=== PATIENT | female | born 1935 | race African-American/Black ===

== ENCOUNTER 2017-02-15 13:51 | Emergency (ER) | payer MEDICARE, MEDICAID ==
[~2017-02-15] VITALS: Ht 160 cm; Wt 77.0 kg
[~2017-02-15 13:51] MED LIST: AMIODARONE; AMLO10TA80 PO; ATEN-176 PO; B50 PO; DIAZ10TA4 PO; LOSA50TA20 PO; OCD PO; PANT40TA4 PO; PROAIR; SIMV10TA6 PO; SPIR25TA4 PO; SYSOS EACHEYE; XIIDRA BOTHEYE
[2017-02-15 14:22] VITALS: BP 141/65
[2017-02-15] MEDS ORDERED: ACETAMINOPHEN 325MG TABLET PO ONE (15:15)
== END 2017-02-15 16:12 | disposition home or self-care (01) ==
LOC: ER 15:04
DX: S46.911A Strain of unspecified muscle, fascia and tendon at shoulder and upper arm level, right arm, initial encounter (principal); I25.10 Atherosclerotic heart disease of native coronary artery without angina pectoris; K21.9 Gastro-esophageal reflux disease without esophagitis; I10 Essential (primary) hypertension; M19.90 Unspecified osteoarthritis, unspecified site; Z90.710 Acquired absence of both cervix and uterus; Z88.6 Allergy status to analgesic agent; Z91.041 Radiographic dye allergy status; Z98.890 Other specified postprocedural states; X50.0XXA Overexertion from strenuous movement or load, initial encounter; Y93.89 Activity, other specified; Y92.038 Other place in apartment as the place of occurrence of the external cause
CPT/HCPCS: 99283

== ENCOUNTER → 2017-05-03 | Outpatient (CLI) | payer MEDICARE, MEDICAID | END | disposition home or self-care (01) | LOC: RAD 12:50 | PROVIDERS: ATTEND Internal Medicine Gastroenterology | DX: R07.81 Pleurodynia (principal) | CPT/HCPCS: 71101 ==

== ENCOUNTER 2020-04-25 23:04 | Inpatient (IN) | payer MEDICARE, MEDICAID ==
[~2020-04-25] VITALS: Ht 157.5 cm; Wt 75.3 kg
[~2020-04-25 23:04] MED LIST changes: +AMIO100T4 PO; -AMIODARONE; -ATEN-176 PO; -B50 PO; +FOLI-43 MT; +FURO20TA4 PO; -LOSA50TA20 PO; -OCD PO; -PROAIR; +ROSU20TA2 PO; -SIMV10TA6 PO; -SPIR25TA4 PO; -SYSOS EACHEYE; -XIIDRA BOTHEYE
[2020-04-25] MEDS ORDERED: HYDROCODONE/ACETAMINOPHEN 5/325MG TABLET PO STA (23:35)
[2020-04-25] MEDS ORDERED: NITROGLYCERIN 0.4MG TABLET SL SL PRN (23:45)
[2020-04-25 23:51] LABS: BASOPHILS % 0.9 % (0.0-2.0); HEMATOCRIT. 34.9 % (36.0-48.0); HEMOGLOBIN. 11.7 g/dL (12.0-16.0); LYMPHOCYTES % 17.6 % (20.0-50.0); MEAN CORPUSCULAR HEMOGLOBIN 30.4 pg (28.0-32.0); MEAN CORPUSCULAR VOLUME 90.9 fL (81.0-99.0); MEAN PLATELET VOLUME 6.8 fl (7.4-10.4); MONOCYTES % 10.4 % (2.0-8.0); NEUTROPHILS % 68.1 % (40.0-76.0); PLATELET 274 x1000/uL (130-400); RED BLOOD CELL COUNT 3.84 mill/uL (4.2-5.4); RED CELL DISTRIBUTION WIDTH 17.2 % (11.6-14.6)
[2020-04-25 23:59] LABS: CHLORIDE 106 mEq/L (98-107)
[2020-04-26 00:02] LABS: PARTIAL THROMBOPLASTIN TIME 34.2 sec (23.4-31.0); PROTHROMBIN TIME 10.5 sec (9.6-11.0)
[2020-04-26] MEDS ORDERED: ACETAMINOPHEN 500MG TABLET PO ONE (00:45)
[2020-04-26] MEDS ORDERED: SODIUM CHLORIDE 0.9% 1,000 ML IV ONE (00:45)
[2020-04-26 09:00] VITALS: BP 138/66
[2020-04-26] MEDS ORDERED: CARV25TA47 MT (09:16)
[2020-04-26] MEDS ORDERED: DILT120C51 MT (09:16)
[2020-04-26] MEDS ORDERED: APIX5TAB MT (09:16)
[2020-04-26] MEDS ORDERED: OLME40TA18 MT (09:16)
[2020-04-26] MEDS ORDERED: ONDANSETRON HCL 4MG/2ML INJ IV PRN (10:15)
[2020-04-26] MEDS ORDERED: MAGNESIUM/ALUMINUM HYDROXIDE/SIMETHICONE 30ML UDC PO PRN ×2 (10:15→11:00)
[2020-04-26] MEDS ORDERED: LORAZEPAM 0.5MG TABLET PO PRN (10:15)
[2020-04-26] MEDS ORDERED: ACETAMINOPHEN 325MG TABLET PO PRN ×2 (10:15)
[2020-04-26] MEDS ORDERED: GUAIFENESIN 200MG/10ML SUGAR FREE UDC PO PRN (10:15)
[2020-04-26] MEDS ORDERED: DIPHENHYDRAMINE 50MG/ML VIAL IV PRN (10:15)
[2020-04-26] MEDS ORDERED: ZOLPIDEM TARTRATE 5MG TABLET PO PRN (10:15)
[2020-04-26] MEDS: PANTOPRAZOLE 40MG DR TABLET PO SCH ×3 (11:00→20:32)
[2020-04-26] MEDS ORDERED: HYDROCODONE/ACETAMINOPHEN 5/325MG TABLET PO PRN (11:00)
[2020-04-26] MEDS ORDERED: DIAZEPAM 5 MG TABLET PO PRN (11:00)
[2020-04-26] MEDS: LOSARTAN POTASSIUM 50 MG TABLET PO SCH ×2 (11:08→12:00)
[2020-04-26 12:00] VITALS: BP 137/62
[2020-04-26 16:00] VITALS: BP 142/62
[2020-04-26] MEDS: SODIUM CHLORIDE 0.9% INJ 3ML FLUSH IVF SCH ×2 (16:19→23:35)
[2020-04-26] MEDS: APIXABAN 2.5 MG TABLET PO SCH ×2 (16:57→17:00)
[2020-04-26] MEDS ORDERED: AMLO10TA80 MT (17:16)
[2020-04-26 20:00] VITALS: BP 140/65
[2020-04-26] MEDS ORDERED: ATORVASTATIN CALCIUM 20MG TABLET PO SCH (21:00)
[2020-04-26] MEDS: TRIAMCINOLONE ACETONIDE 0.1 % OINT 15GM TOP SCH (23:36)
[2020-04-27] VITALS: BP 142/70
[2020-04-27 04:00] VITALS: BP 131/65
[2020-04-27] MEDS: SODIUM CHLORIDE 0.9% INJ 3ML FLUSH IVF SCH ×2 (05:45→13:02)
[2020-04-27] MEDS: TRIAMCINOLONE ACETONIDE 0.1 % OINT 15GM TOP SCH ×2 (05:45→13:05)
[2020-04-27 08:00] VITALS: BP 159/66
[2020-04-27] MEDS: PANTOPRAZOLE 40MG DR TABLET PO SCH (08:15)
[2020-04-27] MEDS: APIXABAN 2.5 MG TABLET PO SCH (08:16)
[2020-04-27] MEDS: LOSARTAN POTASSIUM 50 MG TABLET PO SCH (08:16)
[2020-04-27] MEDS ORDERED: AMIODARONE HCL 200 MG TABLET PO SCH (09:00)
[2020-04-27 12:00] VITALS: BP 129/60
[2020-04-27 13:58] VITALS: BP 129/60
== END 2020-04-27 14:46 | disposition home or self-care (01) | DRG 391 ==
LOC: ER 23:04 → 5WST 04-26 00:37 → ENRESERV 04-26 07:43
PROVIDERS: ADMIT Internal Medicine; ATTEND Internal Medicine
DX: K21.9 Gastro-esophageal reflux disease without esophagitis (principal); N17.0 Acute kidney failure with tubular necrosis; I48.92 Unspecified atrial flutter; I24.9 Acute ischemic heart disease, unspecified; I48.0 Paroxysmal atrial fibrillation; I10 Essential (primary) hypertension; I25.10 Atherosclerotic heart disease of native coronary artery without angina pectoris; M19.90 Unspecified osteoarthritis, unspecified site; E78.00 Pure hypercholesterolemia, unspecified; I27.20 Pulmonary hypertension, unspecified; F41.9 Anxiety disorder, unspecified; Z88.8 Allergy status to other drugs, medicaments and biological substances; Z88.6 Allergy status to analgesic agent; Z91.041 Radiographic dye allergy status; Z79.84 Long term (current) use of oral hypoglycemic drugs; Z79.899 Other long term (current) drug therapy; Z90.710 Acquired absence of both cervix and uterus; Z82.49 Family history of ischemic heart disease and other diseases of the circulatory system; Z80.0 Family history of malignant neoplasm of digestive organs
CPT/HCPCS: 36415; 71045; 80048; 80053; 83880; 84484; 85025; 93005; 99285

== ENCOUNTER 2020-11-21 19:56 | Emergency (ER) | payer MEDICARE, MEDICAID ==
[~2020-11-21] VITALS: Ht 167.6 cm; Wt 72.0 kg
[~2020-11-21 19:56] MED LIST changes: +AMLO10TA80 MT; -AMLO10TA80 PO; +APIX5TAB MT; +CARV25TA47 MT; +DILT120C51 MT; +OLME40TA18 MT; -PANT40TA4 PO; +PANT40TA51 PO
[2020-11-21 22:30] VITALS: BP 145/72
[2020-11-21] MEDS ORDERED: POLY10DR RIGHTEYE (22:52)
== END 2020-11-21 23:31 | disposition home or self-care (01) ==
LOC: ER 19:56
DX: H11.31 Conjunctival hemorrhage, right eye (principal); I10 Essential (primary) hypertension; M19.90 Unspecified osteoarthritis, unspecified site; K21.9 Gastro-esophageal reflux disease without esophagitis; I48.91 Unspecified atrial fibrillation; I25.10 Atherosclerotic heart disease of native coronary artery without angina pectoris; Z90.710 Acquired absence of both cervix and uterus; Z79.01 Long term (current) use of anticoagulants; Z98.51 Tubal ligation status; Z88.6 Allergy status to analgesic agent; Z91.041 Radiographic dye allergy status; Z91.013 Allergy to seafood
CPT/HCPCS: 99283

== ENCOUNTER → 2021-01-07 | Outpatient (CLI) | payer MEDICARE, MEDICAID ==
[~2021-01-07] MED LIST changes: +POLY10DR RIGHTEYE
== END | disposition home or self-care (01) ==
LOC: NM 08:34
PROVIDERS: ATTEND Internal Medicine
DX: E05.90 Thyrotoxicosis, unspecified without thyrotoxic crisis or storm (principal)
CPT/HCPCS: 78014; A9516

== ENCOUNTER 2021-07-23 16:15 | Inpatient (IN) | payer MEDICARE, MEDICAID ==
[~2021-07-23] VITALS: Ht 157.5 cm; Wt 73.1 kg
[~2021-07-23 16:15] MED LIST changes: +HYDR25SU37 RC
[2021-07-23] MEDS ORDERED: FAMOTIDINE 20MG/2ML VIAL IV ONE (17:00)
[2021-07-23] MEDS ORDERED: EPINEPHRINE 1:1000 1 MG/ML AMP IM ONE (17:00)
[2021-07-23] MEDS ORDERED: DIPHENHYDRAMINE 50MG/ML VIAL IV ONE (17:00)
[2021-07-23] MEDS ORDERED: METHYLPREDNISOLONE SOD SUCC 125 MG/2 ML VIAL IV ONE (17:00)
[2021-07-23 17:55] LABS: CHLORIDE 106 mEq/L (98-107)
[2021-07-23 18:02] LABS: BASOPHILS % 0.5 % (0.0-2.0); EOSINOPHILS % 3.2 % (0.0-5.0); HEMATOCRIT. 35.6 % (36.0-48.0); HEMOGLOBIN. 11.5 g/dL (12.0-16.0); LYMPHOCYTES % 18.2 % (20.0-50.0); MEAN CORPUSCULAR HEMOGLOBIN 30.5 pg (28.0-32.0); MEAN CORPUSCULAR VOLUME 93.9 fL (81.0-99.0); MEAN PLATELET VOLUME 7.2 fl (7.4-10.4); MONOCYTES % 7.9 % (2.0-8.0); NEUTROPHILS % 70.2 % (40.0-76.0); PLATELET 276 x1000/uL (130-400); RED BLOOD CELL COUNT 3.79 mill/uL (4.2-5.4); RED CELL DISTRIBUTION WIDTH 15.4 % (11.6-14.6)
[2021-07-23 23:00] VITALS: BP 176/89
[2021-07-24] VITALS: BP 176/89
[2021-07-24] MEDS ORDERED: DIPHENHYDRAMINE 50MG/ML VIAL IV PRN (00:15)
[2021-07-24] MEDS ORDERED: HYDRALAZINE 20MG/ML VIAL IV PRN (00:15)
[2021-07-24] MEDS ORDERED: ACETAMINOPHEN 325MG TABLET PO PRN (00:15)
[2021-07-24] MEDS ORDERED: DIAZEPAM 5 MG TABLET PO PRN ×2 (00:15→11:00)
[2021-07-24] MEDS ORDERED: OXYCODONE HCL 5MG TABLET PO PRN (00:30)
[2021-07-24] MEDS ORDERED: NALOXONE HCL 0.4MG/ML VIAL IV PRN (01:00)
[2021-07-24 04:00] VITALS: BP 127/74
[2021-07-24 06:00] VITALS: BP 136/72
[2021-07-24] MEDS ORDERED: PANTOPRAZOLE 40MG DR TABLET PO SCH ×2 (07:30→21:00)
[2021-07-24 08:00] VITALS: BP 148/73
[2021-07-24] MEDS ORDERED: DILTIAZEM HCL 120MG CAPSULE CD 24HR PO SCH (09:00)
[2021-07-24] MEDS ORDERED: FUROSEMIDE 20MG TABLET PO SCH ×2 (09:00)
[2021-07-24] MEDS ORDERED: AMIODARONE HCL 200 MG TABLET PO SCH ×2 (09:00→11:00)
[2021-07-24] MEDS ORDERED: APIXABAN 5 MG TABLET PO SCH ×2 (09:00→17:00)
[2021-07-24 12:00] VITALS: BP 169/81
[2021-07-24] MEDS ORDERED: HYDRALAZINE HCL 25MG TABLET PO SCH (14:00)
[2021-07-24 15:15] VITALS: BP 167/90
[2021-07-24] MEDS ORDERED: ATORVASTATIN CALCIUM 10MG TABLET PO SCH ×2 (21:00)
[2021-07-24] MEDS ORDERED: CARVEDILOL 12.5MG TABLET PO SCH (21:00)
== END 2021-07-24 15:50 | disposition home or self-care (01) | DRG 916 ==
LOC: ER 16:15 → 5EST 19:26 → ENRESERV 20:34
PROVIDERS: ADMIT Internal Medicine; ATTEND Internal Medicine
DX: T78.3XXA Angioneurotic edema, initial encounter (principal); I48.92 Unspecified atrial flutter; I48.91 Unspecified atrial fibrillation; I10 Essential (primary) hypertension; E78.00 Pure hypercholesterolemia, unspecified; I27.20 Pulmonary hypertension, unspecified; K21.9 Gastro-esophageal reflux disease without esophagitis; F41.9 Anxiety disorder, unspecified; Z79.01 Long term (current) use of anticoagulants; Z88.8 Allergy status to other drugs, medicaments and biological substances; Z88.6 Allergy status to analgesic agent; Z91.041 Radiographic dye allergy status; Z79.899 Other long term (current) drug therapy; Z79.84 Long term (current) use of oral hypoglycemic drugs; Z90.710 Acquired absence of both cervix and uterus; Z82.49 Family history of ischemic heart disease and other diseases of the circulatory system; Z80.0 Family history of malignant neoplasm of digestive organs
CPT/HCPCS: 36415; 80053; 85025; 99291; J0360; J1200; J2930; J3490

== ENCOUNTER → 2022-02-23 | Outpatient (CLI) | payer MEDICARE, MEDICAID ==
[2022-02-23 13:03] LABS: BASOPHILS % 0.3 % (0.0-2.0); EOSINOPHILS % 2.8 % (0.0-5.0); HEMOGLOBIN. 13.6 g/dL (12.0-16.0); LYMPHOCYTES % 17.2 % (20.0-50.0); MEAN CORPUSCULAR HEMOGLOBIN 31.9 pg (28.0-32.0); MEAN CORPUSCULAR VOLUME 96.1 fL (81.0-99.0); MEAN PLATELET VOLUME 7.4 fl (7.4-10.4); MONOCYTES % 7.8 % (2.0-8.0); NEUTROPHILS % 71.9 % (40.0-76.0); PLATELET 259 x1000/uL (130-400); RED BLOOD CELL COUNT 4.26 mill/uL (4.2-5.4); RED CELL DISTRIBUTION WIDTH 14.7 % (11.6-14.6)
[2022-02-23 13:06] LABS: CHLORIDE 105 mEq/L (98-107)
[2022-02-23 13:08] LABS: PROTHROMBIN TIME 11.1 sec (9.6-11.0)
[2022-02-23 13:22] LABS: HDL CHOLESTEROL 58 mg/dL (40-59); LDL CHOLESTEROL 82 mg/dL (5-100); T4 FREE 1.14 ng/dL (0.76-1.46)
== END | disposition home or self-care (01) ==
LOC: LAB 11:55
PROVIDERS: ATTEND Specialist
DX: I10 Essential (primary) hypertension (principal); E78.5 Hyperlipidemia, unspecified; I48.0 Paroxysmal atrial fibrillation
CPT/HCPCS: 36415; 80053; 80061; 84439; 84443; 85025

== ENCOUNTER → 2022-07-06 | Outpatient (CLI) | payer MEDICARE, MEDICAID ==
[2022-07-06 11:40] LABS: CHLORIDE 108 mEq/L (98-107)
[2022-07-06 11:49] LABS: HDL CHOLESTEROL 63 mg/dL (40-59); LDL CHOLESTEROL 68 mg/dL (5-100)
== END | disposition home or self-care (01) ==
LOC: LAB 10:48
PROVIDERS: ATTEND Specialist
DX: I10 Essential (primary) hypertension (principal); E78.5 Hyperlipidemia, unspecified; E11.9 Type 2 diabetes mellitus without complications
CPT/HCPCS: 36415; 80053; 80061; 83036

== ENCOUNTER 2023-04-12 11:59 | Inpatient (IN) | payer OTHER, MEDICAID ==
[~2023-04-12] VITALS: Ht 157.5 cm; Wt 63.5 kg
[2023-04-12 12:15] VITALS: O2SAT 98
[2023-04-12 12:40] LABS: BASOPHILS % 0.4 % (0.0-2.0); EOSINOPHILS % 0.8 % (0.0-5.0); HEMOGLOBIN. 10.5 g/dL (12.0-16.0); LYMPHOCYTES % 16.1 % (20.0-50.0); MEAN CORPUSCULAR HGB CONC 32.7 g/dL (31.0-37.0); MEAN CORPUSCULAR VOLUME 97.8 fL (81.0-99.0); MEAN PLATELET VOLUME 6.8 fl (7.4-10.4); MONOCYTES % 6.4 % (2.0-8.0); NEUTROPHILS % 76.3 % (40.0-76.0); PLATELET 368 x1000/uL (130-400); RED BLOOD CELL COUNT 3.27 mill/uL (4.2-5.4); RED CELL DISTRIBUTION WIDTH 14.9 % (11.6-14.6)
[2023-04-12 12:54] LABS: INR 1.1; PARTIAL THROMBOPLASTIN TIME 32.7 sec (23.4-31.0); PROTHROMBIN TIME 11.8 sec (9.6-11.0)
[2023-04-12 13:01] LABS: CHLORIDE 107 mEq/L (98-107); INDEX HEMOLYSI 1 (1-3); INDEX ICTERIC 1 (1-4); INDEX LIPEMIC 1 (1-3); POTASSIUM 4.4 mEq/L (3.5-5.1); SODIUM 138 mEq/L (136-145)
[2023-04-12 13:09] LABS: ALANINE AMINOTRANSFERASE 125 IU/L (13-61); ALBUMIN 3.2 g/dL (3.4-5.0); ASPARTATE AMINOTRANSFERASE 132 IU/L (15-37); BILIRUBIN TOTAL 0.6 mg/dL (0.1-1.0); CALCIUM 9.1 mg/dL (8.5-10.1); CARBON DIOXIDE 32 mEq/L (21-32); CREATININE 1.4 mg/dL (0.6-1.3); GLUCOSE 104 mg/dL (70-105); PROTEIN TOTAL 7.4 g/dL (6.0-8.3); UREA NITROGEN BLOOD 26 mg/dL (7-21)
[2023-04-12 16:16] LABS: CLARITY URINE CLEAR (CLEAR); COLOR URINE YELLOW (YELLOW); GLUCOSE URINE NEGATIVE (NEGATIVE); KETONES URINE NEGATIVE (NEGATIVE); LEUKOCYTE ESTERASE URINE NEGATIVE (NEGATIVE); NITRITE URINE NEGATIVE (NEGATIVE); OCCULT BLOOD URINE TRACE (NEGATIVE); PROTEIN URINE NEGATIVE (NEGATIVE); SPECIFIC GRAVITY URINE 1.014 (1.005-1.030); UROBILINOGEN URINE 0.2 E.U./dL (0.2-1.0)
[2023-04-12 16:43] LABS: BACTERIA URINE TRACE; RBC URINE 0-2 /hpf (0-2); SQUAMOUS EPITHELIAL CELL URINE RARE /lpf (RARE/1+); WBC URINE 0-2 /hpf (0-2)
[2023-04-12] MEDS ORDERED: ONDANSETRON HCL 4MG/2ML INJ IV PRN (19:45)
[2023-04-12] MEDS ORDERED: ACETAMINOPHEN 325MG TABLET PO PRN (19:45)
[2023-04-12] MEDS ORDERED: DIAZEPAM 5 MG TABLET PO PRN (19:45)
[2023-04-12] MEDS ORDERED: DIPHENHYDRAMINE 50MG/ML VIAL IV PRN (19:45)
[2023-04-12] MEDS ORDERED: OXYCODONE HCL 5MG TABLET PO PRN (20:00)
[2023-04-12] MEDS ORDERED: NALOXONE HCL 0.4MG/ML VIAL IV PRN (20:15)
[2023-04-12] MEDS ORDERED: BRIMONIDINE 0.2% OPHTH DROPS 10ML BOTHEYE SCH (21:00)
[2023-04-12] MEDS ORDERED: ATORVASTATIN CALCIUM 20MG TABLET PO SCH (21:00)
[2023-04-12] MEDS ORDERED: ZOLPIDEM TARTRATE 5MG TABLET PO PRN (21:00)
[2023-04-12] MEDS: METOPROLOL TARTRATE 25MG TABLET PO SCH (22:37)
[2023-04-12] MEDS: TIMOLOL MALEATE 0.5% OPHTH DROPS 5ML EACHEYE SCH (22:58)
[2023-04-12] MEDS: BRIMONIDINE 0.2% OPHTH DROPS 5ML BOTHEYE SCH (22:58)
[2023-04-12] MEDS: SODIUM CHLORIDE 0.9% INJ 3ML FLUSH IVF SCH (22:58)
[2023-04-12] MEDS: PANTOPRAZOLE 40MG DR TABLET PO SCH (22:58)
[2023-04-13 00:01] VITALS: BP 139/56; PULSE 65; RESP 12; TEMP 96.3
[2023-04-13] MEDS ORDERED: TIMO5DRO32 EACHEYE (00:22)
[2023-04-13] MEDS ORDERED: CYCL5.5D EACHEYE (00:22)
[2023-04-13] MEDS ORDERED: BRIM15DR8 EACHEYE (00:22)
[2023-04-13] MEDS ORDERED: LATA2.5D14 EACHEYE (00:22)
[2023-04-13 04:00] VITALS: BP 130/55; PULSE 54; RESP 19; TEMP 97.3
[2023-04-13] MEDS ORDERED: AMLO5TAB88 PO (05:07)
[2023-04-13] MEDS ORDERED: GINS100C5 PO (05:07)
[2023-04-13] MEDS ORDERED: POTA-202 PO (05:07)
[2023-04-13] MEDS ORDERED: DOCU100T PO (05:07)
[2023-04-13] MEDS ORDERED: COLC0.6C3 PO (05:07)
[2023-04-13] MEDS ORDERED: FERR325T30 PO (05:07)
[2023-04-13] MEDS ORDERED: ICOS1CAP MT (05:07)
[2023-04-13] MEDS ORDERED: BRIM10DR2 EACHEYE (05:07)
[2023-04-13] MEDS ORDERED: DILT-27 PO (05:07)
[2023-04-13] MEDS ORDERED: METO-396 PO (05:07)
[2023-04-13] MEDS ORDERED: TELM80TA8 PO (05:07)
[2023-04-13] MEDS ORDERED: CLOT15CR5 TP (05:23)
[2023-04-13] MEDS ORDERED: *PATIENT'S OWN MEDICATION STORAGE XX SCH (05:45)
[2023-04-13 06:23] LABS: BASOPHILS % 0.4 % (0.0-2.0); EOSINOPHILS % 1.2 % (0.0-5.0); HEMATOCRIT. 29.2 % (36.0-48.0); HEMOGLOBIN. 9.7 g/dL (12.0-16.0); LYMPHOCYTES % 14.3 % (20.0-50.0); MEAN CORPUSCULAR HEMOGLOBIN 32.8 pg (28.0-32.0); MEAN CORPUSCULAR HGB CONC 33.3 g/dL (31.0-37.0); MEAN CORPUSCULAR VOLUME 98.4 fL (81.0-99.0); MEAN PLATELET VOLUME 7.2 fl (7.4-10.4); MONOCYTES % 7.1 % (2.0-8.0); PLATELET 309 x1000/uL (130-400); RED BLOOD CELL COUNT 2.96 mill/uL (4.2-5.4); RED CELL DISTRIBUTION WIDTH 15.2 % (11.6-14.6); WHITE BLOOD COUNT 11.4 x1000/uL (4.5-11.0)
[2023-04-13] MEDS: SODIUM CHLORIDE 0.9% INJ 3ML FLUSH IVF SCH ×3 (06:54→22:00)
[2023-04-13] MEDS: PANTOPRAZOLE 40MG DR TABLET PO SCH ×2 (06:55→21:48)
[2023-04-13 07:06] LABS: ALBUMIN 2.7 g/dL (3.4-5.0); BILIRUBIN DIRECT 0.1 mg/dL (0.0-0.2); BILIRUBIN TOTAL 0.4 mg/dL (0.1-1.0); CALCIUM 8.6 mg/dL (8.5-10.1); CREATININE 1.2 mg/dL (0.6-1.3); PROTEIN TOTAL 6.3 g/dL (6.0-8.3)
[2023-04-13 07:57] LABS: INR 1.1; PROTHROMBIN TIME 11.8 sec (9.6-11.0)
[2023-04-13 08:00] VITALS: BP 123/86; PULSE 62; RESP 18; TEMP 98
[2023-04-13 08:28] LABS: INDEX HEMOLYSI 1 (1-3)
[2023-04-13 08:59] LABS: FOLIC ACID (FOLATE) SERUM >20 ng/mL ng/mL (>5.38); VITAMIN B12 SERUM 1727 pg/mL (211-911)
[2023-04-13] MEDS: TIMOLOL MALEATE 0.5% OPHTH DROPS 5ML EACHEYE SCH ×2 (09:00→21:50)
[2023-04-13] MEDS: AMLODIPINE 5MG TABLET PO SCH (09:00)
[2023-04-13] MEDS: AMIODARONE HCL 200 MG TABLET PO SCH (09:00)
[2023-04-13] MEDS: METOPROLOL TARTRATE 25MG TABLET PO SCH ×2 (09:00→21:49)
[2023-04-13] MEDS: BRIMONIDINE 0.2% OPHTH DROPS 5ML BOTHEYE SCH (10:23)
[2023-04-13 12:00] VITALS: BP 133/48; PULSE 68; RESP 18; TEMP 96.8
[2023-04-13] MEDS: IRON SUCROSE COMPLEX 100 MG/5 ML ML IV SCH (15:04)
[2023-04-13 16:00] VITALS: BP 154/62; PULSE 66; RESP 19; TEMP 97.5
[2023-04-13 18:28] LABS: HEPATITIS B SURFACE ANTIGEN NEGATIVE
[2023-04-13 18:55] LABS: HEPATITIS C VIR.AB 0.25 INDEXVAL (0.00-0.80)
[2023-04-13 20:00] VITALS: BP 158/68; PULSE 69; RESP 20; TEMP 98.1
[2023-04-13] MEDS ORDERED: NON FORMULARY PATIENT HOME MED XX SCH (21:30)
[2023-04-13] MEDS: SODIUM CHLORIDE 0.9% 1,000 ML IV SCH (21:49)
[2023-04-13] MEDS: ATORVASTATIN CALCIUM 10MG TABLET PO SCH (21:49)
[2023-04-13] MEDS: ACETAMINOPHEN 325MG TABLET PO PRN (21:55)
[2023-04-13 22:32] LABS: NT PRO B-TYPE NATRIURETIC PEP 815 pg/mL (5-125); TROPONIN I HIGH SENSITIVITY 14 ng/L (<54)
[2023-04-13 23:18] LABS: CARCINO EMBRYONIC ANTIGEN 3.4 ng/ml
[2023-04-14] VITALS: BP 104/59; PULSE 65; RESP 19; TEMP 98.7
[2023-04-14] MEDS: LATANOPROST 0.005% OPHTH DROPS 2.5ML EACHEYE SCH ×2 (00:32→20:35)
[2023-04-14] MEDS: BRIMONIDINE 0.2% OPHTH DROPS 5ML BOTHEYE SCH ×3 (00:32→20:35)
[2023-04-14 04:00] VITALS: BP 159/65; PULSE 60; RESP 18; TEMP 98.3
[2023-04-14] MEDS: SODIUM CHLORIDE 0.9% INJ 3ML FLUSH IVF SCH ×3 (05:48→20:35)
[2023-04-14] MEDS: PANTOPRAZOLE 40MG DR TABLET PO SCH ×2 (07:06→20:28)
[2023-04-14 08:00] VITALS: BP 145/70; PULSE 67; RESP 18; TEMP 97.7
[2023-04-14 08:23] LABS: BASOPHILS % 0.1 % (0.0-2.0); EOSINOPHILS % 0.4 % (0.0-5.0); HEMATOCRIT. 29.1 % (36.0-48.0); HEMOGLOBIN. 9.5 g/dL (12.0-16.0); LYMPHOCYTES % 13.3 % (20.0-50.0); MEAN CORPUSCULAR HEMOGLOBIN 32.1 pg (28.0-32.0); MEAN CORPUSCULAR HGB CONC 32.7 g/dL (31.0-37.0); MEAN PLATELET VOLUME 7.3 fl (7.4-10.4); MONOCYTES % 7.5 % (2.0-8.0); NEUTROPHILS % 78.7 % (40.0-76.0); PLATELET 280 x1000/uL (130-400); RED BLOOD CELL COUNT 2.97 mill/uL (4.2-5.4); RED CELL DISTRIBUTION WIDTH 15.1 % (11.6-14.6)
[2023-04-14 09:01] LABS: CHLORIDE 107 mEq/L (98-107); INDEX HEMOLYSI 1 (1-3); INDEX ICTERIC 1 (1-4); INDEX LIPEMIC 1 (1-3); POTASSIUM 3.6 mEq/L (3.5-5.1); SODIUM 140 mEq/L (136-145); UREA NITROGEN BLOOD 14 mg/dL (7-21)
[2023-04-14 09:11] LABS: CALCIUM 8.3 mg/dL (8.5-10.1); CARBON DIOXIDE 26 mEq/L (21-32); CREATININE 0.9 mg/dL (0.6-1.3); GLUCOSE 96 mg/dL (70-105)
[2023-04-14] MEDS: METOPROLOL TARTRATE 25MG TABLET PO SCH ×2 (09:22→20:28)
[2023-04-14] MEDS: AMLODIPINE 5MG TABLET PO SCH (09:22)
[2023-04-14] MEDS: AMIODARONE HCL 200 MG TABLET PO SCH (09:22)
[2023-04-14] MEDS: TIMOLOL MALEATE 0.5% OPHTH DROPS 5ML EACHEYE SCH ×2 (09:23→20:35)
[2023-04-14] MEDS: SODIUM CHLORIDE 0.9% 1,000 ML IV SCH (09:23)
[2023-04-14] MEDS ORDERED: LIDOCAINE HCL 1% 10 MG/ML 10ML VIAL ONE (10:42)
[2023-04-14 12:00] VITALS: BP 137/67; PULSE 78; RESP 18; TEMP 98.2
[2023-04-14 13:11] LABS: ALPHA FETOPROTEIN TUMOR MARKER < 1.8 ng/mL (0.0-8.7); CA 19-9 < 2 U/mL (0-35)
[2023-04-14] MEDS ORDERED: METOCLOPRAMIDE HCL 10MG/2ML VIAL IV SCH ×2 (14:30→19:00)
[2023-04-14] MEDS ORDERED: SORBITOL 70% SOLN 30ML PO SCH (14:30)
[2023-04-14] MEDS ORDERED: BISACODYL 5MG TABLET PO SCH ×3 (15:00)
[2023-04-14] MEDS ORDERED: METOCLOPRAMIDE HCL 10MG/2ML VIAL IV NR (15:00)
[2023-04-14] MEDS ORDERED: SORBITOL 70% SOLN 30ML PO NR ×2 (15:30→19:30)
[2023-04-14 16:00] VITALS: BP 157/68; PULSE 68; RESP 18; TEMP 98
[2023-04-14] MEDS: IRON SUCROSE COMPLEX 100 MG/5 ML ML IV SCH (16:53)
[2023-04-14] MEDS ORDERED: BISACODYL 5MG TABLET PO NR (19:00)
[2023-04-14 20:00] VITALS: BP 161/90; PULSE 77; RESP 19; TEMP 97.4
[2023-04-14] MEDS: ATORVASTATIN CALCIUM 10MG TABLET PO SCH (20:28)
[2023-04-15] VITALS: BP 112/60; PULSE 85; RESP 20; TEMP 98.5
[2023-04-15 04:00] VITALS: BP 122/62; PULSE 88; RESP 19; TEMP 97.5
[2023-04-15] MEDS ORDERED: BISACODYL 5MG TABLET PO NR (06:30)
[2023-04-15] MEDS ORDERED: METOCLOPRAMIDE HCL 10MG/2ML VIAL IV NR (06:30)
[2023-04-15] MEDS ORDERED: SORBITOL 70% SOLN 30ML PO NR (06:30)
[2023-04-15] MEDS: PANTOPRAZOLE 40MG DR TABLET PO SCH ×2 (06:48→20:20)
[2023-04-15 06:50] LABS: INR 1.1; PROTHROMBIN TIME 11.4 sec (9.6-11.0)
[2023-04-15 06:54] LABS: BASOPHILS % 0.1 % (0.0-2.0); EOSINOPHILS % 0.2 % (0.0-5.0); HEMATOCRIT. 31.9 % (36.0-48.0); HEMOGLOBIN. 10.3 g/dL (12.0-16.0); LYMPHOCYTES % 13.3 % (20.0-50.0); MEAN CORPUSCULAR HEMOGLOBIN 31.8 pg (28.0-32.0); MEAN CORPUSCULAR HGB CONC 32.3 g/dL (31.0-37.0); MEAN CORPUSCULAR VOLUME 98.4 fL (81.0-99.0); MEAN PLATELET VOLUME 6.9 fl (7.4-10.4); MONOCYTES % 7.3 % (2.0-8.0); NEUTROPHILS % 79.1 % (40.0-76.0); PLATELET 321 x1000/uL (130-400); RED BLOOD CELL COUNT 3.24 mill/uL (4.2-5.4); RED CELL DISTRIBUTION WIDTH 15.4 % (11.6-14.6); WHITE BLOOD COUNT 14.1 x1000/uL (4.5-11.0)
[2023-04-15 06:55] LABS: CALCIUM 8.7 mg/dL (8.5-10.1); POTASSIUM 3.8 mEq/L (3.5-5.1)
[2023-04-15 07:01] LABS: CREATININE 1.5 mg/dL (0.6-1.3)
[2023-04-15 08:00] VITALS: BP 125/70; PULSE 86; RESP 18; TEMP 97.6
[2023-04-15] MEDS: TIMOLOL MALEATE 0.5% OPHTH DROPS 5ML EACHEYE SCH ×2 (08:57→20:21)
[2023-04-15] MEDS: AMIODARONE HCL 200 MG TABLET PO SCH ×2 (08:58→16:29)
[2023-04-15] MEDS: AMLODIPINE 5MG TABLET PO SCH (08:58)
[2023-04-15] MEDS: METOPROLOL TARTRATE 25MG TABLET PO SCH ×2 (08:58→20:21)
[2023-04-15] MEDS: BRIMONIDINE 0.2% OPHTH DROPS 5ML BOTHEYE SCH ×2 (11:01→20:21)
[2023-04-15 12:00] VITALS: BP 141/67; PULSE 82; RESP 18; TEMP 98
[2023-04-15] MEDS: SODIUM CHLORIDE 0.9% INJ 3ML FLUSH IVF SCH ×2 (13:26→20:53)
[2023-04-15] MEDS ORDERED: LIDOCAINE HCL 1% 10 MG/ML 10ML VIAL ONE (14:04)
[2023-04-15] MEDS ORDERED: PROPOFOL 200MG/20ML VIAL IV ONE ×2 (14:05→14:46)
[2023-04-15] MEDS ORDERED: SIMETHICONE 40 MG/0.6 ML 15ML ONE (14:12)
[2023-04-15] MEDS ORDERED: HYDROMORPHONE HCL/PF 2MG/ML CPJ IV PRN (14:30)
[2023-04-15] MEDS ORDERED: ONDANSETRON HCL 4MG/2ML INJ IV PRN (14:30)
[2023-04-15] MEDS ORDERED: LABETALOL 5MG/ML SYR 20 MG/4 ML SYRINGE IV PRN (14:30)
[2023-04-15] MEDS ORDERED: MEPERIDINE HCL/PF 25MG/ML CPJ IV PRN (14:30)
[2023-04-15] MEDS: IRON SUCROSE COMPLEX 100 MG/5 ML ML IV SCH (16:29)
[2023-04-15 16:30] VITALS: BP 134/75; PULSE 92; RESP 18; TEMP 97.5
[2023-04-15] MEDS: SODIUM CHLORIDE 0.9% 1,000 ML IV SCH ×2 (18:07→22:22)
[2023-04-15] MEDS: LATANOPROST 0.005% OPHTH DROPS 2.5ML EACHEYE SCH (20:21)
[2023-04-15] MEDS: ATORVASTATIN CALCIUM 10MG TABLET PO SCH (20:39)
[2023-04-15 20:42] VITALS: BP 182/78; PULSE 75; RESP 20; TEMP 97.2
[2023-04-16 00:53] VITALS: BP 126/45; PULSE 61; RESP 18; TEMP 97.6
[2023-04-16 04:00] VITALS: BP 140/80; PULSE 58; RESP 20; TEMP 97.4
[2023-04-16] MEDS: PANTOPRAZOLE 40MG DR TABLET PO SCH (06:44)
[2023-04-16] MEDS ORDERED: BUPIVACAINE HCL/PF 0.5% (5MG/ML) 10ML ONE (06:59)
[2023-04-16 07:05] LABS: BASOPHILS % 0.3 % (0.0-2.0); EOSINOPHILS % 1.2 % (0.0-5.0); HEMATOCRIT. 25.8 % (36.0-48.0); HEMOGLOBIN. 8.6 g/dL (12.0-16.0); LYMPHOCYTES % 12.4 % (20.0-50.0); MEAN CORPUSCULAR HEMOGLOBIN 32.2 pg (28.0-32.0); MEAN CORPUSCULAR HGB CONC 33.2 g/dL (31.0-37.0); MEAN CORPUSCULAR VOLUME 97.1 fL (81.0-99.0); MEAN PLATELET VOLUME 7.4 fl (7.4-10.4); MONOCYTES % 6.5 % (2.0-8.0); NEUTROPHILS % 79.6 % (40.0-76.0); PLATELET 253 x1000/uL (130-400); RED BLOOD CELL COUNT 2.66 mill/uL (4.2-5.4); WHITE BLOOD COUNT 13.7 x1000/uL (4.5-11.0)
[2023-04-16] MEDS ORDERED: MIDAZOLAM HCL 2 MG/2 ML VIAL ONE (07:37)
[2023-04-16] MEDS ORDERED: ETOMIDATE 2MG/ML 10ML VIAL IV ONE (07:37)
[2023-04-16] MEDS ORDERED: ONDANSETRON HCL 4MG/2ML INJ ONE (07:37)
[2023-04-16] MEDS ORDERED: FENTANYL CITRATE/PF 50MCG/ML 2ML VIAL ONE (07:37)
[2023-04-16] MEDS ORDERED: DEXAMETHASONE 4MG/ML 1ML VIAL ONE (07:37)
[2023-04-16] MEDS ORDERED: ROCURONIUM BROMIDE 10MG/ML VIAL 5ML IV ONE (07:37)
[2023-04-16] MEDS ORDERED: METOCLOPRAMIDE HCL 10MG/2ML VIAL ONE (07:37)
[2023-04-16] MEDS ORDERED: LIDOCAINE 2% 6ML GLYDO MM ONE (07:39)
[2023-04-16] MEDS ORDERED: MORPHINE SULFATE 2 MG/ML CPJ (NOT FOR IM USE) IV PRN (08:15)
[2023-04-16] MEDS ORDERED: EPHEDRINE SULFATE 50MG/ML VIAL ONE (08:43)
[2023-04-16] MEDS: FAMOTIDINE 20MG/2ML VIAL IV SCH ×2 (09:00→21:12)
[2023-04-16] MEDS: TIMOLOL MALEATE 0.5% OPHTH DROPS 5ML EACHEYE SCH ×2 (09:00→21:11)
[2023-04-16] MEDS: AMIODARONE HCL 200 MG TABLET PO SCH (09:00)
[2023-04-16] MEDS: METOPROLOL TARTRATE 25MG TABLET PO SCH ×2 (09:00→21:00)
[2023-04-16] MEDS: AMLODIPINE 5MG TABLET PO SCH (09:00)
[2023-04-16 09:49] LABS: CALCIUM 8.1 mg/dL (8.5-10.1); CREATININE 1.3 mg/dL (0.6-1.3)
[2023-04-16 09:54] LABS: POTASSIUM 2.8 mEq/L (3.5-5.1)
[2023-04-16] MEDS ORDERED: POTASSIUM CHLORIDE INJ 40 MEQ in DEXT 5% WATER 250 ML IV ONE (10:00)
[2023-04-16] MEDS ORDERED: IRON SUCROSE COMPLEX 100 MG/5 ML ML IV SCH (10:15)
[2023-04-16] MEDS: KCL 20MEQ/100ML X 2 FOR TOTAL KCL 40MEQ/200ML IV SCH ×2 (10:27→12:40)
[2023-04-16] MEDS: BRIMONIDINE 0.2% OPHTH DROPS 5ML BOTHEYE SCH ×2 (10:43→22:39)
[2023-04-16] MEDS: DEXT 5%/0.45% NACL KCL 20MEQ/L 1,000 ML IV SCH ×2 (12:40→19:00)
[2023-04-16] MEDS: SODIUM CHLORIDE 0.9% INJ 3ML FLUSH IVF SCH ×2 (12:48→21:14)
[2023-04-16 16:00] VITALS: BP 106/59; PULSE 88; RESP 20; TEMP 99
[2023-04-16] MEDS: IRON SUCROSE COMPLEX 100 MG/5 ML ML IV SCH (16:02)
[2023-04-16] MEDS: MORPHINE SULFATE 4 MG/ML CPJ (NOT FOR IM USE) IV PRN ×2 (16:02→20:15)
[2023-04-16 20:00] VITALS: BP 145/61; PULSE 70; RESP 20; TEMP 98.1
[2023-04-16] MEDS: ATORVASTATIN CALCIUM 10MG TABLET PO SCH (21:00)
[2023-04-16] MEDS: LATANOPROST 0.005% OPHTH DROPS 2.5ML EACHEYE SCH (21:12)
[2023-04-17] VITALS: BP 140/58; PULSE 74; RESP 20; TEMP 98.2
[2023-04-17 04:00] VITALS: BP 117/49; PULSE 72; RESP 20; TEMP 97.5
[2023-04-17] MEDS: DEXT 5%/0.45% NACL KCL 20MEQ/L 1,000 ML IV SCH ×3 (05:17→23:54)
[2023-04-17 06:03] LABS: BASOPHILS % 0.1 % (0.0-2.0); HEMATOCRIT. 25.6 % (36.0-48.0); HEMOGLOBIN. 8.2 g/dL (12.0-16.0); LYMPHOCYTES % 10.2 % (20.0-50.0); MEAN CORPUSCULAR HEMOGLOBIN 32.1 pg (28.0-32.0); MEAN CORPUSCULAR HGB CONC 32.1 g/dL (31.0-37.0); MEAN CORPUSCULAR VOLUME 99.8 fL (81.0-99.0); MEAN PLATELET VOLUME 7.5 fl (7.4-10.4); MONOCYTES % 4.9 % (2.0-8.0); NEUTROPHILS % 84.8 % (40.0-76.0); PLATELET 257 x1000/uL (130-400); RED BLOOD CELL COUNT 2.56 mill/uL (4.2-5.4); RED CELL DISTRIBUTION WIDTH 15.1 % (11.6-14.6); WHITE BLOOD COUNT 16.9 x1000/uL (4.5-11.0)
[2023-04-17] MEDS: SODIUM CHLORIDE 0.9% INJ 3ML FLUSH IVF SCH ×3 (06:09→21:14)
[2023-04-17 06:19] LABS: CHLORIDE 114 mEq/L (98-107); INDEX HEMOLYSI 1 (1-3); INDEX ICTERIC 1 (1-4); INDEX LIPEMIC 1 (1-3); POTASSIUM 4.5 mEq/L (3.5-5.1); SODIUM 139 mEq/L (136-145)
[2023-04-17 06:25] LABS: CALCIUM 7.7 mg/dL (8.5-10.1); CARBON DIOXIDE 20 mEq/L (21-32); GLUCOSE 152 mg/dL (70-105); PHOSPHORUS 2.1 mg/dL (2.5-4.9); UREA NITROGEN BLOOD 20 mg/dL (7-21)
[2023-04-17] MEDS: MORPHINE SULFATE 4 MG/ML CPJ (NOT FOR IM USE) IV PRN ×2 (06:30→10:43)
[2023-04-17 08:00] VITALS: BP 120/51; PULSE 75; RESP 18; TEMP 97
[2023-04-17] MEDS: AMIODARONE HCL 200 MG TABLET PO SCH (08:26)
[2023-04-17] MEDS: FAMOTIDINE 20MG/2ML VIAL IV SCH ×2 (08:26→21:13)
[2023-04-17] MEDS: AMLODIPINE 5MG TABLET PO SCH (08:27)
[2023-04-17] MEDS: METOPROLOL TARTRATE 25MG TABLET PO SCH ×2 (08:29→21:00)
[2023-04-17] MEDS: BRIMONIDINE 0.2% OPHTH DROPS 5ML BOTHEYE SCH ×2 (08:30→22:37)
[2023-04-17] MEDS: TIMOLOL MALEATE 0.5% OPHTH DROPS 5ML EACHEYE SCH ×2 (08:30→21:13)
[2023-04-17] MEDS ORDERED: MAGNESIUM 1 G PREMIX 100 ML IV SCH (12:00)
[2023-04-17] MEDS ORDERED: POTASSIUM PHOS,M-BASIC-D-BASIC 15 MMOL in DEXT 5% WATER 245 ML IV SCH (13:00)
[2023-04-17 16:00] VITALS: BP 133/60; PULSE 76; RESP 18; TEMP 97
[2023-04-17 20:00] VITALS: BP 114/69; PULSE 81; RESP 19; TEMP 102.4
[2023-04-17] MEDS: ATORVASTATIN CALCIUM 10MG TABLET PO SCH (21:00)
[2023-04-17] MEDS: LATANOPROST 0.005% OPHTH DROPS 2.5ML EACHEYE SCH (21:13)
[2023-04-18] VITALS: BP 162/57; PULSE 82; RESP 20; TEMP 99.1
[2023-04-18 04:00] VITALS: BP 162/64; PULSE 87; RESP 19; TEMP 96.6
[2023-04-18] MEDS: MORPHINE SULFATE 4 MG/ML CPJ (NOT FOR IM USE) IV PRN (05:35)
[2023-04-18] MEDS: SODIUM CHLORIDE 0.9% INJ 3ML FLUSH IVF SCH ×3 (05:35→22:00)
[2023-04-18 06:26] LABS: EOSINOPHILS % 0.1 % (0.0-5.0); HEMATOCRIT. 25.9 % (36.0-48.0); HEMOGLOBIN. 8.6 g/dL (12.0-16.0); LYMPHOCYTES % 8.1 % (20.0-50.0); MEAN CORPUSCULAR HEMOGLOBIN 32.3 pg (28.0-32.0); MEAN CORPUSCULAR HGB CONC 33.1 g/dL (31.0-37.0); MEAN CORPUSCULAR VOLUME 97.6 fL (81.0-99.0); MEAN PLATELET VOLUME 7.1 fl (7.4-10.4); MONOCYTES % 4.9 % (2.0-8.0); NEUTROPHILS % 86.9 % (40.0-76.0); PLATELET 255 x1000/uL (130-400); RED BLOOD CELL COUNT 2.65 mill/uL (4.2-5.4); RED CELL DISTRIBUTION WIDTH 14.8 % (11.6-14.6); WHITE BLOOD COUNT 18.7 x1000/uL (4.5-11.0)
[2023-04-18 07:05] LABS: CALCIUM 7.5 mg/dL (8.5-10.1); CHLORIDE 113 mEq/L (98-107); INDEX HEMOLYSI 1 (1-3); INDEX ICTERIC 1 (1-4); INDEX LIPEMIC 1 (1-3); POTASSIUM 4.5 mEq/L (3.5-5.1); SODIUM 136 mEq/L (136-145)
[2023-04-18 07:08] LABS: CARBON DIOXIDE 23 mEq/L (21-32); CREATININE 0.7 mg/dL (0.6-1.3); GLUCOSE 131 mg/dL (70-105); UREA NITROGEN BLOOD 7 mg/dL (7-21)
[2023-04-18 08:00] VITALS: BP 144/62; PULSE 84; RESP 22; TEMP 97.1
[2023-04-18] MEDS: AMLODIPINE 5MG TABLET PO SCH (09:14)
[2023-04-18] MEDS: AMIODARONE HCL 200 MG TABLET PO SCH (09:15)
[2023-04-18] MEDS: FAMOTIDINE 20MG/2ML VIAL IV SCH ×2 (09:15→21:59)
[2023-04-18] MEDS: METOPROLOL TARTRATE 25MG TABLET PO SCH ×2 (09:15→21:59)
[2023-04-18] MEDS: TIMOLOL MALEATE 0.5% OPHTH DROPS 5ML EACHEYE SCH ×2 (09:16→22:00)
[2023-04-18] MEDS: BRIMONIDINE 0.2% OPHTH DROPS 5ML BOTHEYE SCH ×2 (10:34→22:00)
[2023-04-18] MEDS: DEXT 5%/0.45% NACL KCL 20MEQ/L 1,000 ML IV SCH ×2 (10:36→21:59)
[2023-04-18 12:00] VITALS: BP 151/79; PULSE 72; RESP 20; TEMP 97.9
[2023-04-18] MEDS ORDERED: NALOXONE HCL 0.4MG/ML VIAL IV PRN (14:30)
[2023-04-18 18:02] VITALS: BP 175/67; PULSE 76; RESP 20; TEMP 98
[2023-04-18] MEDS: HYDRALAZINE 20MG/ML VIAL IV PRN (18:19)
[2023-04-18 20:00] VITALS: BP 152/60; PULSE 83; RESP 18; TEMP 97.1
[2023-04-18] MEDS: ATORVASTATIN CALCIUM 10MG TABLET PO SCH (21:59)
[2023-04-18] MEDS: LATANOPROST 0.005% OPHTH DROPS 2.5ML EACHEYE SCH (22:00)
[2023-04-19] VITALS: BP 122/52; PULSE 78; RESP 19; TEMP 98.1
[2023-04-19 04:00] VITALS: BP 138/51; PULSE 78; RESP 19; TEMP 98.1
[2023-04-19 05:44] LABS: CHLORIDE 112 mEq/L (98-107); INDEX HEMOLYSI 1 (1-3); INDEX ICTERIC 1 (1-4); INDEX LIPEMIC 1 (1-3); POTASSIUM 4.7 mEq/L (3.5-5.1); SODIUM 138 mEq/L (136-145)
[2023-04-19 05:52] LABS: CALCIUM 7.8 mg/dL (8.5-10.1); CARBON DIOXIDE 24 mEq/L (21-32); CREATININE 0.7 mg/dL (0.6-1.3); GLUCOSE 119 mg/dL (70-105); UREA NITROGEN BLOOD 18 mg/dL (7-21)
[2023-04-19] MEDS: SODIUM CHLORIDE 0.9% INJ 3ML FLUSH IVF SCH ×3 (06:00→21:30)
[2023-04-19 06:21] LABS: BASOPHILS % 0.1 % (0.0-2.0); EOSINOPHILS % 0.1 % (0.0-5.0); HEMATOCRIT. 23.2 % (36.0-48.0); HEMOGLOBIN. 7.7 g/dL (12.0-16.0); LYMPHOCYTES % 11.1 % (20.0-50.0); MEAN CORPUSCULAR HEMOGLOBIN 32.7 pg (28.0-32.0); MEAN CORPUSCULAR HGB CONC 33.4 g/dL (31.0-37.0); MEAN PLATELET VOLUME 8.1 fl (7.4-10.4); MONOCYTES % 7.5 % (2.0-8.0); NEUTROPHILS % 81.2 % (40.0-76.0); PLATELET 208 x1000/uL (130-400); RED BLOOD CELL COUNT 2.36 mill/uL (4.2-5.4); RED CELL DISTRIBUTION WIDTH 14.9 % (11.6-14.6); WHITE BLOOD COUNT 10.7 x1000/uL (4.5-11.0)
[2023-04-19 08:04] VITALS: BP 144/56; PULSE 83; RESP 18; TEMP 97.9
[2023-04-19] MEDS: AMIODARONE HCL 200 MG TABLET PO SCH (08:58)
[2023-04-19] MEDS: METOPROLOL TARTRATE 25MG TABLET PO SCH ×2 (08:58→21:28)
[2023-04-19] MEDS: TIMOLOL MALEATE 0.5% OPHTH DROPS 5ML EACHEYE SCH ×2 (08:59→21:29)
[2023-04-19] MEDS: FAMOTIDINE 20MG/2ML VIAL IV SCH ×2 (08:59→21:04)
[2023-04-19] MEDS: AMLODIPINE 5MG TABLET PO SCH (08:59)
[2023-04-19] MEDS: BRIMONIDINE 0.2% OPHTH DROPS 5ML BOTHEYE SCH ×2 (11:23→21:29)
[2023-04-19 11:53] VITALS: BP 133/50; PULSE 68; RESP 20; TEMP 98.3
[2023-04-19] MEDS: DEXT 5%/0.45% NACL 1000ML 1,000 ML IV SCH (13:23)
[2023-04-19 16:02] VITALS: BP 129/55; PULSE 63; RESP 20; TEMP 98.3
[2023-04-19] MEDS: ACETAMINOPHEN 325MG TABLET PO PRN (17:59)
[2023-04-19 20:00] VITALS: BP 136/63; PULSE 73; RESP 20; TEMP 99.6
[2023-04-19] MEDS: ONDANSETRON HCL 4MG/2ML INJ IV PRN (21:04)
[2023-04-19] MEDS: ATORVASTATIN CALCIUM 10MG TABLET PO SCH (21:28)
[2023-04-19] MEDS: LATANOPROST 0.005% OPHTH DROPS 2.5ML EACHEYE SCH (21:29)
[2023-04-20] VITALS: BP 140/66; PULSE 76; RESP 18; TEMP 99.9
[2023-04-20] MEDS: DEXT 5%/0.45% NACL 1000ML 1,000 ML IV SCH ×3 (00:50→18:54)
[2023-04-20 04:00] VITALS: BP 129/47; PULSE 80; RESP 18; TEMP 99.9
[2023-04-20] MEDS: SODIUM CHLORIDE 0.9% INJ 3ML FLUSH IVF SCH ×3 (05:41→21:09)
[2023-04-20 07:39] LABS: CHLORIDE 112 mEq/L (98-107); INDEX HEMOLYSI 1 (1-3); INDEX ICTERIC 1 (1-4); INDEX LIPEMIC 1 (1-3); POTASSIUM 4.4 mEq/L (3.5-5.1); SODIUM 134 mEq/L (136-145)
[2023-04-20 07:42] LABS: HEMATOCRIT. 29.7 % (36.0-48.0); HEMOGLOBIN. 9.7 g/dL (12.0-16.0); MEAN CORPUSCULAR HEMOGLOBIN 32.2 pg (28.0-32.0); MEAN CORPUSCULAR HGB CONC 32.7 g/dL (31.0-37.0); MEAN CORPUSCULAR VOLUME 98.5 fL (81.0-99.0); MEAN PLATELET VOLUME 7.9 fl (7.4-10.4); PLATELET 292 x1000/uL (130-400); RED BLOOD CELL COUNT 3.01 mill/uL (4.2-5.4); WHITE BLOOD COUNT 14.6 x1000/uL (4.5-11.0)
[2023-04-20 07:43] LABS: CALCIUM 7.9 mg/dL (8.5-10.1); CARBON DIOXIDE 21 mEq/L (21-32); CREATININE 0.8 mg/dL (0.6-1.3); GLUCOSE 109 mg/dL (70-105); UREA NITROGEN BLOOD 18 mg/dL (7-21)
[2023-04-20 07:55] LABS: DIFFERENTIAL COMMENT 1
[2023-04-20 08:00] VITALS: BP 137/54; PULSE 91; RESP 18; TEMP 97.7
[2023-04-20] MEDS: AMIODARONE HCL 200 MG TABLET PO SCH (08:43)
[2023-04-20] MEDS: FAMOTIDINE 20MG/2ML VIAL IV SCH ×2 (08:43→20:46)
[2023-04-20] MEDS: METOPROLOL TARTRATE 25MG TABLET PO SCH ×2 (08:49→20:46)
[2023-04-20] MEDS: AMLODIPINE 5MG TABLET PO SCH (08:49)
[2023-04-20] MEDS: TIMOLOL MALEATE 0.5% OPHTH DROPS 5ML EACHEYE SCH ×2 (08:50→20:47)
[2023-04-20] MEDS: BRIMONIDINE 0.2% OPHTH DROPS 5ML BOTHEYE SCH ×2 (11:39→21:43)
[2023-04-20 12:00] VITALS: BP 125/56; PULSE 77; RESP 18; TEMP 97.8
[2023-04-20 16:00] VITALS: BP 116/59; PULSE 59; RESP 18; TEMP 97.8
[2023-04-20 16:17] LABS: PLATELET ESTIMATE NORMAL
[2023-04-20 20:00] VITALS: BP 157/65; PULSE 71; RESP 18; TEMP 97.8
[2023-04-20] MEDS: ATORVASTATIN CALCIUM 10MG TABLET PO SCH (20:47)
[2023-04-20] MEDS: LATANOPROST 0.005% OPHTH DROPS 2.5ML EACHEYE SCH (20:47)
[2023-04-21] VITALS (7 sets, daily range): BP systolic 116–142; BP diastolic 44–72; PULSE 83–140; RESP 17–19; TEMP 97.6–99
[2023-04-21] MEDS: SODIUM CHLORIDE 0.9% INJ 3ML FLUSH IVF SCH ×3 (05:29→21:44)
[2023-04-21] MEDS: DEXT 5%/0.45% NACL 1000ML 1,000 ML IV SCH ×2 (05:29→14:18)
[2023-04-21 06:05] LABS: HEMATOCRIT. 28.2 % (36.0-48.0); HEMOGLOBIN. 8.4 g/dL (12.0-16.0); MEAN CORPUSCULAR HEMOGLOBIN 31.5 pg (28.0-32.0); MEAN CORPUSCULAR HGB CONC 29.9 g/dL (31.0-37.0); MEAN CORPUSCULAR VOLUME 105.6 fL (81.0-99.0); MEAN PLATELET VOLUME 7.4 fl (7.4-10.4); PLATELET 227 x1000/uL (130-400); RED BLOOD CELL COUNT 2.67 mill/uL (4.2-5.4); RED CELL DISTRIBUTION WIDTH 16.1 % (11.6-14.6); WHITE BLOOD COUNT 12.9 x1000/uL (4.5-11.0)
[2023-04-21 06:19] LABS: DIFFERENTIAL COMMENT 1
[2023-04-21 07:03] LABS: CHLORIDE 108 mEq/L (98-107); INDEX HEMOLYSI 1 (1-3); INDEX ICTERIC 1 (1-4); INDEX LIPEMIC 1 (1-3); POTASSIUM 3.9 mEq/L (3.5-5.1); SODIUM 134 mEq/L (136-145)
[2023-04-21 07:14] LABS: CALCIUM 7.5 mg/dL (8.5-10.1); CARBON DIOXIDE 18 mEq/L (21-32); CREATININE 0.6 mg/dL (0.6-1.3); GLUCOSE 101 mg/dL (70-105); UREA NITROGEN BLOOD 16 mg/dL (7-21)
[2023-04-21] MEDS: FAMOTIDINE 20MG/2ML VIAL IV SCH ×2 (08:59→21:59)
[2023-04-21] MEDS: AMIODARONE HCL 200 MG TABLET PO SCH (08:59)
[2023-04-21] MEDS: AMLODIPINE 5MG TABLET PO SCH (08:59)
[2023-04-21] MEDS: METOPROLOL TARTRATE 25MG TABLET PO SCH (08:59)
[2023-04-21] MEDS: ONDANSETRON HCL 4MG/2ML INJ IV PRN ×2 (08:59→21:59)
[2023-04-21] MEDS: TIMOLOL MALEATE 0.5% OPHTH DROPS 5ML EACHEYE SCH ×2 (09:00→21:44)
[2023-04-21] MEDS: KETOROLAC 15MG/ML VIAL IV PRN (09:13)
[2023-04-21] MEDS ORDERED: METOPROLOL TARTRATE 50MG TABLET PO SCH (10:30)
[2023-04-21] MEDS: BRIMONIDINE 0.2% OPHTH DROPS 5ML BOTHEYE SCH ×2 (10:44→21:44)
[2023-04-21 12:48] LABS: PLATELET ESTIMATE NORMAL
[2023-04-21] MEDS: ATORVASTATIN CALCIUM 10MG TABLET PO SCH (21:43)
[2023-04-21] MEDS: METOPROLOL TARTRATE 50MG TABLET PO SCH (21:43)
[2023-04-21] MEDS: LATANOPROST 0.005% OPHTH DROPS 2.5ML EACHEYE SCH (21:44)
[2023-04-22] VITALS (7 sets, daily range): BP systolic 92–186; BP diastolic 40–84; PULSE 67–104; RESP 17–18; TEMP 97.2–98.2
[2023-04-22] MEDS: DEXT 5%/0.45% NACL 1000ML 1,000 ML IV SCH ×3 (01:00→22:45)
[2023-04-22] MEDS: SODIUM CHLORIDE 0.9% INJ 3ML FLUSH IVF SCH ×3 (05:22→22:46)
[2023-04-22 06:58] LABS: HEMATOCRIT. 23.8 % (36.0-48.0); HEMOGLOBIN. 8.2 g/dL (12.0-16.0); MEAN CORPUSCULAR HEMOGLOBIN 32.6 pg (28.0-32.0); MEAN CORPUSCULAR HGB CONC 34.3 g/dL (31.0-37.0); MEAN CORPUSCULAR VOLUME 94.9 fL (81.0-99.0); MEAN PLATELET VOLUME 8.1 fl (7.4-10.4); PLATELET 225 x1000/uL (130-400); RED BLOOD CELL COUNT 2.51 mill/uL (4.2-5.4); RED CELL DISTRIBUTION WIDTH 15.2 % (11.6-14.6); WHITE BLOOD COUNT 10.1 x1000/uL (4.5-11.0)
[2023-04-22 07:21] LABS: DIFFERENTIAL COMMENT 1
[2023-04-22 08:57] LABS: POTASSIUM 3.6 mEq/L (3.5-5.1)
[2023-04-22] MEDS: AMLODIPINE 5MG TABLET PO SCH (09:13)
[2023-04-22] MEDS: AMIODARONE HCL 200 MG TABLET PO SCH (09:14)
[2023-04-22] MEDS: TIMOLOL MALEATE 0.5% OPHTH DROPS 5ML EACHEYE SCH ×2 (09:14→22:55)
[2023-04-22] MEDS: METOPROLOL TARTRATE 50MG TABLET PO SCH ×2 (09:14→22:41)
[2023-04-22] MEDS: ONDANSETRON HCL 4MG/2ML INJ IV PRN (09:50)
[2023-04-22] MEDS: FAMOTIDINE 20MG/2ML VIAL IV SCH ×2 (09:50→22:43)
[2023-04-22] MEDS: BRIMONIDINE 0.2% OPHTH DROPS 5ML BOTHEYE SCH ×2 (09:58→22:54)
[2023-04-22 10:33] LABS: CALCIUM 7.4 mg/dL (8.5-10.1); CREATININE 1.3 mg/dL (0.6-1.3)
[2023-04-22] MEDS: LOSARTAN 100 MG TABLET PO SCH (13:45)
[2023-04-22] MEDS: FUROSEMIDE 40MG TABLET PO SCH (15:41)
[2023-04-22 20:56] LABS: PLATELET ESTIMATE NORMAL
[2023-04-22] MEDS: ATORVASTATIN CALCIUM 10MG TABLET PO SCH (22:41)
[2023-04-22] MEDS: KETOROLAC 15MG/ML VIAL IV PRN (22:56)
[2023-04-22] MEDS: LATANOPROST 0.005% OPHTH DROPS 2.5ML EACHEYE SCH (22:56)
[2023-04-23] VITALS: BP 135/69; PULSE 117; RESP 20; TEMP 98.3
[2023-04-23 04:00] VITALS: BP 102/41; PULSE 103; RESP 18; TEMP 97.2
[2023-04-23] MEDS: DEXT 5%/0.45% NACL 1000ML 1,000 ML IV SCH ×2 (07:00→16:32)
[2023-04-23 08:00] VITALS: BP 116/56; PULSE 90; RESP 16; TEMP 97.4
[2023-04-23] MEDS: TIMOLOL MALEATE 0.5% OPHTH DROPS 5ML EACHEYE SCH ×2 (09:09→20:53)
[2023-04-23] MEDS: FAMOTIDINE 20MG/2ML VIAL IV SCH ×2 (09:09→20:53)
[2023-04-23] MEDS: AMLODIPINE 5MG TABLET PO SCH (09:10)
[2023-04-23] MEDS: AMIODARONE HCL 200 MG TABLET PO SCH (09:10)
[2023-04-23] MEDS: METOPROLOL TARTRATE 50MG TABLET PO SCH ×2 (09:10→20:52)
[2023-04-23] MEDS: LOSARTAN 100 MG TABLET PO SCH (09:11)
[2023-04-23] MEDS: FUROSEMIDE 40MG TABLET PO SCH (09:19)
[2023-04-23] MEDS: BRIMONIDINE 0.2% OPHTH DROPS 5ML BOTHEYE SCH ×2 (10:17→20:58)
[2023-04-23] MEDS: KETOROLAC 15MG/ML VIAL IV PRN (10:17)
[2023-04-23 12:00] VITALS: BP 105/56; PULSE 71; RESP 18; TEMP 97.3
[2023-04-23 16:00] VITALS: BP 104/54; PULSE 73; RESP 18; TEMP 97.4
[2023-04-23 20:00] VITALS: BP 116/59; PULSE 106; RESP 18; TEMP 98.4
[2023-04-23] MEDS: ATORVASTATIN CALCIUM 10MG TABLET PO SCH (20:49)
[2023-04-23] MEDS: LATANOPROST 0.005% OPHTH DROPS 2.5ML EACHEYE SCH (20:53)
[2023-04-24] VITALS: BP 100/41; PULSE 88; RESP 17; TEMP 98.8
[2023-04-24 04:00] VITALS: BP 109/58; PULSE 96; RESP 17; TEMP 99.8
[2023-04-24] MEDS: SODIUM CHLORIDE 0.9% INJ 3ML FLUSH IVF SCH ×3 (05:46→22:21)
[2023-04-24] MEDS: DEXT 5%/0.45% NACL 1000ML 1,000 ML IV SCH ×3 (06:24→22:21)
[2023-04-24 08:08] VITALS: BP 134/63; PULSE 105; RESP 20; TEMP 98.1
[2023-04-24] MEDS: METOPROLOL TARTRATE 50MG TABLET PO SCH ×2 (08:55→20:40)
[2023-04-24] MEDS: FUROSEMIDE 40MG TABLET PO SCH (08:55)
[2023-04-24] MEDS: LOSARTAN 100 MG TABLET PO SCH (08:55)
[2023-04-24] MEDS: AMIODARONE HCL 200 MG TABLET PO SCH (08:55)
[2023-04-24] MEDS: AMLODIPINE 5MG TABLET PO SCH (08:55)
[2023-04-24] MEDS: TIMOLOL MALEATE 0.5% OPHTH DROPS 5ML EACHEYE SCH ×2 (09:00→20:42)
[2023-04-24] MEDS: ACETAMINOPHEN 325MG TABLET PO PRN ×2 (09:04→17:04)
[2023-04-24] MEDS: FAMOTIDINE 20MG/2ML VIAL IV SCH ×2 (10:40→20:39)
[2023-04-24] MEDS: BRIMONIDINE 0.2% OPHTH DROPS 5ML BOTHEYE SCH ×2 (10:43→22:20)
[2023-04-24 12:02] VITALS: BP 123/63; PULSE 89; RESP 18; TEMP 98.1
[2023-04-24 15:46] VITALS: BP 113/53; PULSE 120; RESP 18; TEMP 97.3
[2023-04-24 16:54] LABS: CHLORIDE 108 mEq/L (98-107); INDEX HEMOLYSI 3 (1-3); INDEX ICTERIC 2 (1-4); INDEX LIPEMIC 1 (1-3); POTASSIUM 3.6 mEq/L (3.5-5.1); SODIUM 132 mEq/L (136-145)
[2023-04-24 17:02] LABS: ALANINE AMINOTRANSFERASE 90 IU/L (13-61); ALBUMIN 1.5 g/dL (3.4-5.0); ASPARTATE AMINOTRANSFERASE 152 IU/L (15-37); BILIRUBIN TOTAL 2.3 mg/dL (0.1-1.0); CALCIUM 6.7 mg/dL (8.5-10.1); CARBON DIOXIDE 16 mEq/L (21-32); CREATININE 1.3 mg/dL (0.6-1.3); GLUCOSE 111 mg/dL (70-105); PROTEIN TOTAL 4.6 g/dL (6.0-8.3); UREA NITROGEN BLOOD 25 mg/dL (7-21)
[2023-04-24 20:00] VITALS: BP 171/48; PULSE 78; RESP 18; TEMP 99.6
[2023-04-24] MEDS: HYDRALAZINE 20MG/ML VIAL IV PRN (20:39)
[2023-04-24] MEDS: ATORVASTATIN CALCIUM 10MG TABLET PO SCH (20:41)
[2023-04-24] MEDS: LATANOPROST 0.005% OPHTH DROPS 2.5ML EACHEYE SCH (20:42)
[2023-04-25] VITALS: BP 149/51; PULSE 77; RESP 20; TEMP 99.3
[2023-04-25] MEDS: ACETAMINOPHEN 325MG TABLET PO PRN (01:40)
[2023-04-25] MEDS: ONDANSETRON HCL 4MG/2ML INJ IV PRN (01:41)
[2023-04-25 04:00] VITALS: BP 122/49; PULSE 70; RESP 20; TEMP 99.1
[2023-04-25] MEDS: KETOROLAC 15MG/ML VIAL IV PRN ×2 (06:10→14:16)
[2023-04-25] MEDS: SODIUM CHLORIDE 0.9% INJ 3ML FLUSH IVF SCH ×3 (06:10→21:05)
[2023-04-25 08:21] VITALS: BP 104/65; PULSE 80; RESP 18; TEMP 98
[2023-04-25] MEDS: DEXT 5%/0.45% NACL 1000ML 1,000 ML IV SCH (08:38)
[2023-04-25] MEDS: AMLODIPINE 5MG TABLET PO SCH (08:43)
[2023-04-25] MEDS: TIMOLOL MALEATE 0.5% OPHTH DROPS 5ML EACHEYE SCH ×2 (08:43→21:04)
[2023-04-25] MEDS: FUROSEMIDE 40MG TABLET PO SCH (08:43)
[2023-04-25] MEDS: LOSARTAN 100 MG TABLET PO SCH (08:44)
[2023-04-25] MEDS: AMIODARONE HCL 200 MG TABLET PO SCH (08:44)
[2023-04-25] MEDS: METOPROLOL TARTRATE 50MG TABLET PO SCH ×2 (08:44→21:00)
[2023-04-25] MEDS: FAMOTIDINE 20MG/2ML VIAL IV SCH ×2 (08:54→21:02)
[2023-04-25 09:04] LABS: HEMOGLOBIN. 7.4 g/dL (12.0-16.0); MEAN CORPUSCULAR HEMOGLOBIN 30.6 pg (28.0-32.0); MEAN CORPUSCULAR HGB CONC 32.3 g/dL (31.0-37.0); MEAN CORPUSCULAR VOLUME 94.6 fL (81.0-99.0); MEAN PLATELET VOLUME 8.8 fl (7.4-10.4); PLATELET 176 x1000/uL (130-400); RED BLOOD CELL COUNT 2.43 mill/uL (4.2-5.4); RED CELL DISTRIBUTION WIDTH 15.8 % (11.6-14.6); WHITE BLOOD COUNT 20.6 x1000/uL (4.5-11.0)
[2023-04-25 09:09] LABS: DIFFERENTIAL COMMENT 1
[2023-04-25] MEDS: BRIMONIDINE 0.2% OPHTH DROPS 5ML BOTHEYE SCH ×2 (11:24→21:04)
[2023-04-25 11:44] VITALS: BP 103/46; PULSE 64; RESP 18; TEMP 97
[2023-04-25 15:04] LABS: NUCLEATED RED BLOOD CELLS 1 /100 WBC
[2023-04-25 15:05] LABS: ANISOCYTOSIS 1+; PLATELET ESTIMATE NORMAL
[2023-04-25 16:17] VITALS: BP 95/40; PULSE 60; RESP 19; TEMP 96.9
[2023-04-25] MEDS: AZITHROMYCIN 500 MG TABLET PO SCH (17:49)
[2023-04-25 19:44] LABS: POTASSIUM 3.3 mEq/L (3.5-5.1)
[2023-04-25 20:00] VITALS: BP 111/41; PULSE 66; RESP 20; TEMP 97.7
[2023-04-25] MEDS: ATORVASTATIN CALCIUM 10MG TABLET PO SCH ×2 (21:00→21:02)
[2023-04-25] MEDS: PIPERACILLIN/TAZOBACTAM 3.375 G in DEXTROSE 5% WATER 50 ML IV SCH (21:02)
[2023-04-25] MEDS: LATANOPROST 0.005% OPHTH DROPS 2.5ML EACHEYE SCH (21:03)
[2023-04-26] VITALS (7 sets, daily range): BP systolic 99–145; BP diastolic 41–76; PULSE 9–99; RESP 18–20; TEMP 97.9–98.4
[2023-04-26] MEDS: SODIUM CHLORIDE 0.9% INJ 3ML FLUSH IVF SCH ×3 (06:00→21:25)
[2023-04-26] MEDS: PIPERACILLIN/TAZOBACTAM 3.375 G in DEXTROSE 5% WATER 50 ML IV SCH ×3 (06:32→21:24)
[2023-04-26] MEDS ORDERED: DEXT 5%/0.45% NACL 1000ML 1,000 ML IV SCH (08:00)
[2023-04-26] MEDS: AMLODIPINE 5MG TABLET PO SCH (09:00)
[2023-04-26] MEDS: LOSARTAN 100 MG TABLET PO SCH (09:00)
[2023-04-26] MEDS: FUROSEMIDE 40MG TABLET PO SCH (09:00)
[2023-04-26] MEDS: METOPROLOL TARTRATE 50MG TABLET PO SCH ×2 (09:00→21:00)
[2023-04-26] MEDS: AMIODARONE HCL 200 MG TABLET PO SCH (09:00)
[2023-04-26] MEDS: FAMOTIDINE 20MG/2ML VIAL IV SCH ×2 (10:14→21:24)
[2023-04-26] MEDS: BRIMONIDINE 0.2% OPHTH DROPS 5ML BOTHEYE SCH ×2 (10:15→21:26)
[2023-04-26] MEDS: TIMOLOL MALEATE 0.5% OPHTH DROPS 5ML EACHEYE SCH ×2 (10:17→21:27)
[2023-04-26] MEDS: AZITHROMYCIN 500 MG TABLET PO SCH (17:30)
[2023-04-26] MEDS: ATORVASTATIN CALCIUM 10MG TABLET PO SCH (21:00)
[2023-04-26] MEDS: POTASSIUM CHLORIDE INJ 40 MEQ in DEXT 5%/0.9% NACL 1,000 ML IV SCH (21:24)
[2023-04-26] MEDS: LATANOPROST 0.005% OPHTH DROPS 2.5ML EACHEYE SCH (21:27)
[2023-04-27] VITALS (17 sets, daily range): BP systolic 105–156; BP diastolic 48–93; PULSE 92–127; RESP 20–34; TEMP 97.9–99.9
[2023-04-27] MEDS ORDERED: DIGOXIN 500MCG/2ML AMP IV NR (01:15)
[2023-04-27] MEDS: SODIUM CHLORIDE 0.9% INJ 3ML FLUSH IVF SCH ×3 (06:00→21:40)
[2023-04-27] MEDS: PIPERACILLIN/TAZOBACTAM 3.375 G in DEXTROSE 5% WATER 50 ML IV SCH ×2 (06:00→17:23)
[2023-04-27] MEDS: POTASSIUM CHLORIDE INJ 40 MEQ in DEXT 5%/0.9% NACL 1,000 ML IV SCH ×2 (06:12→17:22)
[2023-04-27 06:44] LABS: CHLORIDE 107 mEq/L (98-107); INDEX HEMOLYSI 1 (1-3); INDEX ICTERIC 2 (1-4); INDEX LIPEMIC 1 (1-3); POTASSIUM 3.8 mEq/L (3.5-5.1); SODIUM 133 mEq/L (136-145)
[2023-04-27 06:52] LABS: ALANINE AMINOTRANSFERASE 74 IU/L (13-61); ALBUMIN 1.4 g/dL (3.4-5.0); ASPARTATE AMINOTRANSFERASE 141 IU/L (15-37); BILIRUBIN TOTAL 3.6 mg/dL (0.1-1.0); CALCIUM 7.6 mg/dL (8.5-10.1); CARBON DIOXIDE 16 mEq/L (21-32); CREATININE 2.4 mg/dL (0.6-1.3); GLUCOSE 95 mg/dL (70-105); PHOSPHORUS 3.4 mg/dL (2.5-4.9); PROTEIN TOTAL 5.1 g/dL (6.0-8.3); UREA NITROGEN BLOOD 51 mg/dL (7-21)
[2023-04-27 06:56] LABS: LACTIC ACID 2.7 mmol/L (0.4-2.0)
[2023-04-27] MEDS: AMIODARONE HCL 200 MG TABLET PO SCH (09:00)
[2023-04-27] MEDS: AMLODIPINE 5MG TABLET PO SCH (09:00)
[2023-04-27] MEDS: LOSARTAN 100 MG TABLET PO SCH (09:00)
[2023-04-27] MEDS: METOPROLOL TARTRATE 50MG TABLET PO SCH ×2 (09:00→23:00)
[2023-04-27] MEDS: FUROSEMIDE 40MG TABLET PO SCH (09:00)
[2023-04-27] MEDS: TIMOLOL MALEATE 0.5% OPHTH DROPS 5ML EACHEYE SCH (10:27)
[2023-04-27] MEDS: FAMOTIDINE 20MG/2ML VIAL IV SCH ×2 (10:27→21:39)
[2023-04-27] MEDS: BRIMONIDINE 0.2% OPHTH DROPS 5ML BOTHEYE SCH (10:28)
[2023-04-27 10:52] LABS: HEMATOCRIT. 29.5 % (36.0-48.0); HEMOGLOBIN. 9.9 g/dL (12.0-16.0); MEAN CORPUSCULAR HEMOGLOBIN 30.4 pg (28.0-32.0); MEAN CORPUSCULAR HGB CONC 33.8 g/dL (31.0-37.0); MEAN PLATELET VOLUME 9.9 fl (7.4-10.4); PLATELET 133 x1000/uL (130-400); RED BLOOD CELL COUNT 3.27 mill/uL (4.2-5.4); RED CELL DISTRIBUTION WIDTH 16.7 % (11.6-14.6); WHITE BLOOD COUNT 34.3 x1000/uL (4.5-11.0)
[2023-04-27] MEDS: DILTIAZEM HCL 5MG/ML 5ML VIAL IV SCH ×2 (10:54→17:23)
[2023-04-27 11:28] LABS: DIFFERENTIAL COMMENT 1
[2023-04-27 12:57] LABS: INDEX HEMOLYSI 2 (1-3)
[2023-04-27 13:04] LABS: CREATINE KINASE 28 IU/L (26-192)
[2023-04-27 13:57] LABS: NUCLEATED RED BLOOD CELLS 1 /100 WBC
[2023-04-27 13:58] LABS: ANISOCYTOSIS 2+; PLATELET ESTIMATE NORMAL
[2023-04-27 16:17] LABS: BG BASE EXCESS -8.8 mmol/L (-2.0-2.0); BG CARBOXYHEMOGLOBIN 0.9 % (0.5-1.5); BG DEOXYHEMOGLOBIN 9.1 % (0.0-5.0); BG HCO3 ACT 15.7 mmol/L (22.0-26.0); BG METHEMOGLOBIN 0.2 % (0.0-1.5); BG OXYGEN SATURATION 90.8 % (92.0-98.5); BG OXYHEMOGLOBIN 89.8 % (94.0-97.0); BG PCO2 30.1 mmHg (35.0-45.0); BG PH 7.336 (7.350-7.450); BG PO2 63.8 mmHg (75.0-100.0); BG SAMPLE SITE RIGHT BRACHIAL; BG TOTAL HEMOGLOBIN 12.6 g/dL (12.0-18.0); BG VENT MODE MASK - NRB
[2023-04-27] MEDS: AZITHROMYCIN 500 MG TABLET PO SCH (17:23)
[2023-04-27] MEDS ORDERED: DEXT 5% IV SCH (20:00)
[2023-04-27] MEDS ORDERED: WATER IV SCH (20:00)
[2023-04-27] MEDS ORDERED: DILTIAZEM HCL 5MG/ML 5ML VIAL IV NR (20:00)
[2023-04-27] MEDS ORDERED: DILTIAZEM HCL IV SCH (20:00)
[2023-04-27] MEDS: ONDANSETRON HCL 4MG/2ML INJ IV PRN (20:50)
[2023-04-27] MEDS: LATANOPROST 0.005% OPHTH DROPS 2.5ML EACHEYE SCH (21:39)
[2023-04-27] MEDS: ATORVASTATIN CALCIUM 10MG TABLET PO SCH (21:39)
[2023-04-27] MEDS ORDERED: MEROPENEM 1,000 MG in SODIUM CHLORIDE 0.9% 100 ML IV SCH (21:45)
[2023-04-27] MEDS: ACETAMINOPHEN 325MG TABLET PO PRN (23:32)
[2023-04-28] VITALS (63 sets, daily range): BP systolic 66–173; BP diastolic 40–147; PULSE 64–127; RESP 14–37; TEMP 97.6–99.3
[2023-04-28] MEDS ORDERED: SODIUM CHLORIDE 0.9% IV NR ×2
[2023-04-28] MEDS ORDERED: AMIKACIN SULFATE IV NR ×2
[2023-04-28] MEDS: BRIMONIDINE 0.2% OPHTH DROPS 5ML BOTHEYE SCH ×3 (01:55→23:26)
[2023-04-28] MEDS: MEROPENEM 500MG in NORMAL SALINE 50ML IV SCH ×2 (01:56→12:56)
[2023-04-28] MEDS: TIMOLOL MALEATE 0.5% OPHTH DROPS 5ML EACHEYE SCH ×3 (01:57→20:44)
[2023-04-28] MEDS: POTASSIUM CHLORIDE INJ 40 MEQ in DEXT 5%/0.9% NACL 1,000 ML IV SCH (03:02)
[2023-04-28 04:45] LABS: HEMATOCRIT. 30.2 % (36.0-48.0); HEMOGLOBIN. 9.9 g/dL (12.0-16.0); MEAN CORPUSCULAR HGB CONC 32.9 g/dL (31.0-37.0); MEAN CORPUSCULAR VOLUME 91.1 fL (81.0-99.0); MEAN PLATELET VOLUME 10.1 fl (7.4-10.4); PLATELET 85 x1000/uL (130-400); RED BLOOD CELL COUNT 3.31 mill/uL (4.2-5.4); RED CELL DISTRIBUTION WIDTH 16.9 % (11.6-14.6); WHITE BLOOD COUNT 29.3 x1000/uL (4.5-11.0)
[2023-04-28 04:52] LABS: DIFFERENTIAL COMMENT 1; POTASSIUM 4.4 mEq/L (3.5-5.1)
[2023-04-28 04:53] LABS: CALCIUM 7.2 mg/dL (8.5-10.1)
[2023-04-28] MEDS: SODIUM CHLORIDE 0.9% INJ 3ML FLUSH IVF SCH ×2 (05:18→13:11)
[2023-04-28 05:32] LABS: PLATELET ESTIMATE DECREASED
[2023-04-28] MEDS ORDERED: FAT EMULSIONS 250 ML IV SCH ×3 (09:00→21:00)
[2023-04-28] MEDS: FAMOTIDINE 20MG/2ML VIAL IV SCH ×2 (09:45→21:47)
[2023-04-28] MEDS: METOPROLOL TARTRATE 50MG TABLET PO SCH ×2 (09:47→21:44)
[2023-04-28] MEDS: AMIODARONE HCL 200 MG TABLET PO SCH (09:48)
[2023-04-28] MEDS: AMLODIPINE 5MG TABLET PO SCH (09:48)
[2023-04-28] MEDS: SODIUM BICARBONATE 100 MEQ in DEXTROSE 5% WATER 1,000 ML IV SCH (09:48)
[2023-04-28] MEDS: DILTIAZEM 125MG in DEXTROSE 5% WATER 125ML IV SCH ×2 (11:05→19:25)
[2023-04-28 12:32] LABS: BG BASE EXCESS -9.8 mmol/L (-2.0-2.0); BG CARBOXYHEMOGLOBIN 0.8 % (0.5-1.5); BG DEOXYHEMOGLOBIN 16.5 % (0.0-5.0); BG FRACTION INSPIRED OXYGEN 100; BG HCO3 ACT 15.4 mmol/L (22.0-26.0); BG METHEMOGLOBIN 0.3 % (0.0-1.5); BG OXYGEN SATURATION 83.3 % (92.0-98.5); BG OXYHEMOGLOBIN 82.4 % (94.0-97.0); BG PCO2 32.1 mmHg (35.0-45.0); BG PH 7.299 (7.350-7.450); BG PO2 49.8 mmHg (75.0-100.0); BG SAMPLE SITE RIGHT RADIAL; BG TOTAL HEMOGLOBIN 13.5 g/dL (12.0-18.0); BG VENT MODE HIGH FLOW
[2023-04-28 13:13] LABS: ALBUMIN 1.3 g/dL (3.4-5.0); BILIRUBIN DIRECT 2.9 mg/dL (0.0-0.2); BILIRUBIN TOTAL 3.4 mg/dL (0.1-1.0); PROTEIN TOTAL 4.6 g/dL (6.0-8.3)
[2023-04-28] MEDS ORDERED: CALCIUM GLUCONATE 1GM PREMIX 50 ML IV SCH (14:30)
[2023-04-28] MEDS: AZITHROMYCIN 500 MG TABLET PO SCH (17:04)
[2023-04-28] MEDS ORDERED: TOTAL PARENTERAL NUTRITION 1,000 ML IV SCH (21:00)
[2023-04-28] MEDS ORDERED: DEXTROSE 50% WATER 50ML SYRINGE IV PRN (21:00)
[2023-04-28] MEDS ORDERED: POTASSIUM CHLORIDE INJ 40 MEQ in DEXT 5%/0.9% NACL 1,000 ML IV SCH (21:30)
[2023-04-28] MEDS: LATANOPROST 0.005% OPHTH DROPS 2.5ML EACHEYE SCH (21:43)
[2023-04-28] MEDS: ATORVASTATIN CALCIUM 10MG TABLET PO SCH (21:43)
[2023-04-29] VITALS (80 sets, daily range): BP systolic 98–161; BP diastolic 34–78; PULSE 58–141; RESP 14–42; TEMP 97.6–99.5
[2023-04-29] MEDS: MEROPENEM 500MG in NORMAL SALINE 50ML IV SCH ×3 (00:51→23:20)
[2023-04-29] MEDS: BLOOD SUGAR DIAGNOSTIC STRIP TEST SCH ×5 (00:55→23:26)
[2023-04-29] MEDS: INSULIN LISPRO (MEDIUM DOSE) 100 UNITS/ML SUBCUT SCH ×4 (00:57→18:42)
[2023-04-29] MEDS: DILTIAZEM 125MG in DEXTROSE 5% WATER 125ML IV SCH ×3 (04:02→20:25)
[2023-04-29] MEDS: SODIUM BICARBONATE 100 MEQ in DEXTROSE 5% WATER 1,000 ML IV SCH (05:19)
[2023-04-29 05:39] LABS: HEMATOCRIT. 28.4 % (36.0-48.0); HEMOGLOBIN. 9.4 g/dL (12.0-16.0); MEAN CORPUSCULAR HEMOGLOBIN 30.2 pg (28.0-32.0); MEAN CORPUSCULAR VOLUME 91.7 fL (81.0-99.0); MEAN PLATELET VOLUME 10.7 fl (7.4-10.4); RED CELL DISTRIBUTION WIDTH 16.7 % (11.6-14.6); WHITE BLOOD COUNT 26.4 x1000/uL (4.5-11.0)
[2023-04-29 05:46] LABS: DIFFERENTIAL COMMENT 1
[2023-04-29 05:47] LABS: CHLORIDE 113 mEq/L (98-107); INDEX HEMOLYSI 1 (1-3); INDEX ICTERIC 2 (1-4); INDEX LIPEMIC 1 (1-3); SODIUM 139 mEq/L (136-145)
[2023-04-29 05:49] LABS: PLATELET 46 x1000/uL (130-400)
[2023-04-29 05:57] LABS: ALBUMIN 1.2 g/dL (3.4-5.0); CALCIUM 7.5 mg/dL (8.5-10.1); CARBON DIOXIDE 18 mEq/L (21-32); CREATININE 1.4 mg/dL (0.6-1.3); GLUCOSE 219 mg/dL (70-105); PHOSPHORUS 2.5 mg/dL (2.5-4.9); PREALBUMIN 3.2 mg/dL (20.0-40.0); TRIGLYCERIDE 200 mg/dL (0-150); UREA NITROGEN BLOOD 43 mg/dL (7-21)
[2023-04-29 06:10] LABS: CHOLESTEROL < 50 mg/dL (<200)
[2023-04-29] MEDS ORDERED: AMIODARONE 150MG/100ML PREMIX 100 ML IV NR ×2 (06:15→08:30)
[2023-04-29 06:51] LABS: PLATELET ESTIMATE DECREASED
[2023-04-29] MEDS ORDERED: SODIUM BICARBONATE 8.4% 1 MEQ/ML 50ML SYR IV NR (08:17)
[2023-04-29] MEDS: AMIODARONE HCL 900 MG in DEXT 5% WATER 482 ML IV SCH ×2 (08:58→21:40)
[2023-04-29] MEDS: AMIODARONE HCL 200 MG TABLET PO SCH (09:00)
[2023-04-29] MEDS: FAMOTIDINE 20MG/2ML VIAL IV SCH ×2 (09:00→20:43)
[2023-04-29] MEDS: AMLODIPINE 5MG TABLET PO SCH (09:00)
[2023-04-29] MEDS: METOPROLOL TARTRATE 50MG TABLET PO SCH ×2 (09:00→20:46)
[2023-04-29] MEDS: BRIMONIDINE 0.2% OPHTH DROPS 5ML BOTHEYE SCH ×2 (13:04→23:20)
[2023-04-29] MEDS: TIMOLOL MALEATE 0.5% OPHTH DROPS 5ML EACHEYE SCH ×2 (13:05→20:45)
[2023-04-29 15:08] LABS: BG BASE EXCESS -6.5 mmol/L (-2.0-2.0); BG CARBOXYHEMOGLOBIN 0.7 % (0.5-1.5); BG DEOXYHEMOGLOBIN 30.6 % (0.0-5.0); BG METHEMOGLOBIN 0.3 % (0.0-1.5); BG OXYGEN SATURATION 69.1 % (92.0-98.5); BG OXYHEMOGLOBIN 68.4 % (94.0-97.0); BG PCO2 59.4 mmHg (35.0-45.0); BG PH 7.187 (7.350-7.450); BG PO2 41.4 mmHg (75.0-100.0); BG SAMPLE SITE RIGHT RADIAL; BG TOTAL HEMOGLOBIN 10.8 g/dL (12.0-18.0); BG VENT MODE VAPOTHERM
[2023-04-29] MEDS ORDERED: PHENYLEPHRINE 100 MG in DEXT 5% WATER 240 ML IV PRN (16:30)
[2023-04-29] MEDS: AZITHROMYCIN 500 MG TABLET PO SCH (17:30)
[2023-04-29] MEDS: LATANOPROST 0.005% OPHTH DROPS 2.5ML EACHEYE SCH (20:44)
[2023-04-29] MEDS: ATORVASTATIN CALCIUM 10MG TABLET PO SCH (20:45)
[2023-04-29] MEDS ORDERED: TOTAL PARENTERAL NUTRITION 1,560 ML IV SCH (21:00)
[2023-04-30] VITALS: BP 122/36; PULSE 47; RESP 0
[2023-04-30 00:15] VITALS: BP 106/12; PULSE 34; RESP 19
[2023-04-30] MEDS ORDERED: PHYTONADIONE 10MG/ML INJ SUBCUT SCH (09:00)
[2023-05-01] MEDS ORDERED: FAT EMULSIONS 250 ML IV SCH (09:00)
== END 2023-04-30 00:45 | DRG 820 ==
LOC: ER 11:59 → 7WST 15:28 → EDBEDREQSVC 20:13 → 5EST 04-27 14:15 → MICUSO 04-28 01:10
PROVIDERS: ADMIT Internal Medicine; ATTEND Internal Medicine
PROC: 02HV33Z Insertion of Infusion Device into Superior Vena Cava, Percutaneous Approach (ICD-10-PCS; 2023-04-14)
PROC: 0DBH8ZX Excision of Cecum, Via Natural or Artificial Opening Endoscopic, Diagnostic (ICD-10-PCS; principal; 2023-04-15)
PROC: 0DBL8ZX Excision of Transverse Colon, Via Natural or Artificial Opening Endoscopic, Diagnostic (ICD-10-PCS; 2023-04-15)
PROC: 0DTF0ZZ Resection of Right Large Intestine, Open Approach (ICD-10-PCS; 2023-04-16)
PROC: 30233N1 Transfusion of Nonautologous Red Blood Cells into Peripheral Vein, Percutaneous Approach (ICD-10-PCS; 2023-04-27)
PROC: 5A0935A Assistance with Respiratory Ventilation, Less than 24 Consecutive Hours, High Flow/Velocity Cannula (ICD-10-PCS; 2023-04-28)
DX: C85.93 Non-Hodgkin lymphoma, unspecified, intra-abdominal lymph nodes (principal); A41.59 Other Gram-negative sepsis; K57.31 Diverticulosis of large intestine without perforation or abscess with bleeding; D65 Disseminated intravascular coagulation [defibrination syndrome]; G82.50 Quadriplegia, unspecified; G92.8 Other toxic encephalopathy; J18.9 Pneumonia, unspecified organism; J96.01 Acute respiratory failure with hypoxia; N17.0 Acute kidney failure with tubular necrosis; E43 Unspecified severe protein-calorie malnutrition; I48.20 Chronic atrial fibrillation, unspecified; K56.7 Ileus, unspecified; I48.92 Unspecified atrial flutter; J44.0 Chronic obstructive pulmonary disease with (acute) lower respiratory infection; E87.1 Hypo-osmolality and hyponatremia; K64.8 Other hemorrhoids; R19.03 Right lower quadrant abdominal swelling, mass and lump; K80.20 Calculus of gallbladder without cholecystitis without obstruction; R74.01 Elevation of levels of liver transaminase levels; D50.9 Iron deficiency anemia, unspecified; I34.0 Nonrheumatic mitral (valve) insufficiency; K44.9 Diaphragmatic hernia without obstruction or gangrene; K63.5 Polyp of colon; K64.4 Residual hemorrhoidal skin tags; I27.20 Pulmonary hypertension, unspecified; D17.5 Benign lipomatous neoplasm of intra-abdominal organs; N73.6 Female pelvic peritoneal adhesions (postinfective); K64.9 Unspecified hemorrhoids; E78.00 Pure hypercholesterolemia, unspecified; I13.10 Hypertensive heart and chronic kidney disease without heart failure, with stage 1 through stage 4 chronic kidney disease, or unspecified chronic kidney disease; N18.9 Chronic kidney disease, unspecified; E87.6 Hypokalemia; D53.9 Nutritional anemia, unspecified; E87.70 Fluid overload, unspecified; Z66 Do not resuscitate; I25.10 Atherosclerotic heart disease of native coronary artery without angina pectoris; M81.0 Age-related osteoporosis without current pathological fracture; M19.90 Unspecified osteoarthritis, unspecified site; Z20.822 Contact with and (suspected) exposure to COVID-19; R13.10 Dysphagia, unspecified; F41.9 Anxiety disorder, unspecified; Z68.25 Body mass index [BMI] 25.0-25.9, adult; K21.9 Gastro-esophageal reflux disease without esophagitis; N73.9 Female pelvic inflammatory disease, unspecified; Z82.49 Family history of ischemic heart disease and other diseases of the circulatory system; Z80.0 Family history of malignant neoplasm of digestive organs; Z79.899 Other long term (current) drug therapy; Z87.891 Personal history of nicotine dependence; Z79.01 Long term (current) use of anticoagulants; Z88.6 Allergy status to analgesic agent; Z90.710 Acquired absence of both cervix and uterus
CPT/HCPCS: 36415; 36573; 36600; 71045; 72195; 74018; 74176; 74181; 76705; 76770; 78278; 78580; 80048; 80053; 80076; 81003; 82040; 82105; 82375; 82378; 82465; 82550; 82607; 82728; 82746; 82805; 82962; 83010; 83540; 83550; 83605; 83615; 83735; 83880; 84100; 84134; 84145; 84478; 84484; 85018; 85025; 85044; 86301; 86304; 86803; 86850; 86880; 86900; 86920; 87077; 87186; 87340; 87426; 88305; 88307; 88331; 93005; 93306; 97110; 97112; 97116; 97162; 97166; 97530; 99285; A6261; A9560; C1725; J0278; J0282; J0360; J0610; J1100; J1160; J1815; J1885; J2185; J2250; J2270; J2405; J2543; J2704; J2765; J3010; J3475; J3480; J3490; J7030; J7042; J7050; J7060; J7070; J7120; P9016